=== PATIENT | female | born 1985 | race Caucasian/White ===

== ENCOUNTER 2018-10-09 10:31 | Day surgery (SDC) | payer OTHER, SELFPAY ==
--- NOTE | 2018-10-08 18:11 | HP.PCM_ITS ---
- Problem List (1) Nonviable Status: Acute History Date of Admission: 10/09/18 Final RHIANNA Source: LMP History of this : This is a 33 year-old, who presented for a NOB visit at ~10 weeks by LMP with VB. LMP 07/23/18. TVUS showed multiple cystic lesions within the uterine cavity with an HCG quant of ~116,000. Medical History: Medical History (Last Updated 10/08/18 @ 18:10 by Shirley Willis DO) Abnormal Pap smear of cervix R87.619 Hepatitis B B19.10 History of wisdom tooth extraction K08.409 Obesity E66.9 hemorrhage O72.1 Surgical History: Surgical History (Last Updated 10/08/18 @ 18:10 by Shirley Willis DO) History of laparoscopic cholecystectomy Z90.49 Allergies No Known Allergies Allergy (Verified 10/08/18 10:49) Home Medications: Home Medications Vits [Prenatabs FA ] 1 tablet PO DAILY 02/15/14 Acetaminophen [Tylenol] 1,000 mg PO Q8H PRN PRN tablet 04/11/17 Naproxen [Naprosyn] 250 - 500 mg PO Q8H PRN PRN tablet 04/11/17 Cholecalciferol (VIT D3) [Vitamin D] 1,000 unit PO DAILY 10/08/18 Ferrous Sulfate 325 mg PO DAILY 10/08/18 Lactobacillus Acidophilus/Fos [Acidophilus Probiotic Tablet] 1 each PO DAILY 10/08/18 Smoking Status: Never smoker History Past Pregnancies: Past Pregnancies Delivery Date Name GA/Weeks Outcome Route Weight Gender Labor Length Anesthesia Delivery Location Provider FOB Review of Systems Constitutional: Denies: Chills, Fever Eyes: Denies: Blurred vision HEENT: Denies: Head Aches Cardiovascular: Denies: Chest Pain Respiratory: Denies: Cough, Shortness of Breath Gastrointestinal: Denies: Abdominal Pain Genitourinary: Denies: Dysuria Psychiatric: Denies: Anxiety, Depression Physical Exam General: Alert, No apparent distress HEENT: Atraumatic Cardiovascular: Regular rate Lungs: Clear to auscultation Abdomen: Soft, Non Tender, Non-Distended Extremities:: No edema Neurological: Neuro grossly intact MASTER PLANNER: Normal external genitalia Assessment/Plan All Active Problems Nonviable (Acute) This is a 33 year-old who presented at 10 weeks by LMP with vaginal bleeding. Ultrasound shows an enlarged uterus with multiple cystic lesions within the uterine cavity. HCG quant is around 116,000. Discussed with patient concern for molar and reviewed other possible differentials. R/b/a of suction D&C reviewed and consent signed. Pt desires to proceed with suction D&C. Discussed increased risk for bleeding and uterine perforation. Discussed possible need for blood transfusion and pt is okay receiving blood products if needed.
[2018-10-09] VITALS (7 sets, daily range): BP systolic 103–119; BP diastolic 51–62; PULSE 70–76; RESP 16–18; TEMP 36.3–36.6; O2SAT 100; BMI 42.9
[2018-10-09 11:07] LABS: Hematocrit 39.7 % (37-47); Hemoglobin 13.6 g/dl (12.0-15.0); Mean Corp Hgb Conc 34.3 g/gl (32-36); Mean Corpuscular Hgb 30.6 pg (27.0-32.0); Mean Corpuscular Volume 89.2 fL (81-99); Platelet Count 228 K/mm3 (150-450); RBC Distribution Width CV 13.1 % (11.6-14.6); RBC Distribution Width SD 42.5 fl (35.1-43.9); Red Blood Count 4.45 M/mm3 (4.2-5.4); White Blood Count 5.7 K/mm3 (4.4-11.0)
[2018-10-09 11:09] LABS: Scan Indicated on CBC? Y/N NO
--- NOTE | 2018-10-09 12:00 | POC_PTH ---
PATIENT: BK ESPINAL [place] [facility] [id number] AGE/SX: 33/F ROOM: RE10/09/[address]: Dr. Shirley Willis DO : 1985 BED: DIS: 10/09/2018 SPEC #: [id number] RECD: 10/09/18 13:48 STATUS: KELIN EDDIE #: [id number] ANIBAL: 10/09/18 12:[address]: Shirley Willis DEPT: SURGICAL PATHOLOGY RECD BY: Vishal Lauren ENTERED: 10/09/18 14:57 SP TYPE: PROD CONC OTHR DR: No Primary Care Phys Tissues: Product of conception, NOS Procedures: Surgery Specimen Level IV HEADER OPERATION: Dilation and curettage, suction PRE-OP DIAGNOSIS: Nonviable TISSUE SUBMITTED: Products of conception MICROSCOPIC DIAGNOSIS Products of conception: Edematous chorionic villi with circumferential trophoblastic hyperplasia, focal cytologic atypia and central cistern formation, suggestive of hydatiform mole. Gestational pattern endometrium and decidual tissue with acute and chronic inflammation and implantation site. CE:quique 10/10/18 MICROSCOPIC DESCRIPTION Slides are reviewed. GROSS DESCRIPTION Received in fixative is one container labeled with the patient's name and designated products of conception. The specimen consists of multiple fragments of pink hemorrhagic soft tissue mixed with blood clot that in aggregate measure 13 x 9 x 3 cm. No tissue is identified. Laser Cutter tissue is submitted in two cassettes. / LAE:quique 10/09/18 TC:2 CPT: 69313
--- NOTE | 2018-10-09 12:28 | DCINST_ITS ---
Discharge Diet: No Restrictions Discharge Activity: Return to Normal Activity, May Drive, May Shower May resume sexual activity in: 4-6 weeks Weight Bearing Status: Full weight bearing Lifting Restrictions: None Call your doctor if you observe: Fever of 101 or Higher, Inability to urinate, Inability to have a bowel movement, Using more than one pad per hour, Shortness of breath, Dizziness, Chest pain, Increased palpitations (irregular heartbeat), Calf discomfort, Uncontrolled pain Cleanse incision/area with: Soap & Water Instructions: Dilation and Curettage Allergies/Adverse Reactions: Allergies No Known Allergies Allergy (Verified 10/09/18 10:48) Medications to take at Discharge Vits [Prenatabs FA ] 1 tablet PO DAILY 02/15/14 Acetaminophen [Tylenol] 1,000 mg PO Q8H PRN PRN tablet 04/11/17 Naproxen [Naprosyn] 250 - 500 mg PO Q8H PRN PRN tablet 04/11/17 Cholecalciferol (VIT D3) [Vitamin D] 1,000 unit PO DAILY 10/08/18 Ferrous Sulfate 325 mg PO DAILY 10/08/18 Lactobacillus Acidophilus/Fos [Acidophilus Probiotic Tablet] 1 each PO DAILY 10/08/18 Primary Care Physician: Care Physician,No Primary [Primary Care Provider] - Test Results: Test results from this visit will be discussed in further detail at your follow- up appointment, if applicable. Please Follow Up With: Shirley Willis DO When: 1 week Proposed Discharge Date: 10/09/18
[2018-10-09] MEDS: Lubricating Jelly 60 GM Tube 30 GM TOPICAL (12:40)
[2018-10-09] MEDS: miSOPROStol 200 MCG Tablet ×2 (12:58)
--- NOTE | 2018-10-09 13:04 | PCM.OPRPT ---
Problem List (1) Nonviable Status: Acute Report of Operation Date of Procedure: 10/09/18 Pre-Operative Diagnosis: Nonviable , MAB versus molar Post-Operative Diagnosis: As above Surgery/Procedure Performed:: Suction D&C under ultrasound guidance Description of Surgical Findings:: Enlarged uterus about 9 weeks in size with products of conception present. Cervix 2 cm dilated with scant POC's noted at the os on exam sandblast carver: Mickie Funez Type of Anesthesia:: MAC Special Medications: None Specimen's removed: Products of conception Drains: None Estimated Blood Loss (mL): 100 Description of Procedure: Patient was prepped and draped in usual sterile fashion in dorsal lithotomy position using yellow fin stirrups. MAC anesthesia was adequate. A weighted speculum was placed and cervix exposed. Cervix was already dilated to 2 cm with scant products of conception visible at the os. A single tooth tenaculum was placed on the anterior lip of the cervix. The cervix was serially dilated to accommodate a size 10 suction curettage. The suction curettage was used to remove products of conception under US guidance. A sharp curettage was performed gently to removed POC's in the right cornua that were visible on US. The suction curettage was passed again with no retained POC's noted, and the US showed a thin endometrial stripe with no retained POC's. Bleeding was hemostatic and uterus firm. All instruments were removed from the vagina. Cytotec 800 mcg was placed rectally. Instrument counts were correct. Patient tolerated the procedure well and was taken to the recovery room in stable condition. Grafts/Implants Used: None - Complications None - Admit VTE Documentation VTE Present on Admission: No VTE Mechan Device Prophylaxis: [facility] [place] VTE Pharm Prophylaxis ordered?: No
== END 2018-10-09 14:28 | disposition home or self-care (01) ==
LOC: SDC 10:39 → AC 10:40
PROVIDERS: Referring Provider Obstetrics & Gynecology; Visit Provider Obstetrics & Gynecology
PROC: (CPT 59820; principal; 2018-10-09 11:45)
DX: O02.1 Missed abortion (principal); Z3A.10 10 weeks gestation of pregnancy; E66.9 Obesity, unspecified; O99.211 Obesity complicating pregnancy, first trimester
CPT/HCPCS: 01965; 59820; 85027; 86850; 86900; 88305; J7120

== ENCOUNTER 2020-05-30 21:45 | Outpatient (CLI) | payer OTHER, SELFPAY ==
[2018-10-09 11:11] VITALS: BMI 42.9
[2020-05-30 21:58] VITALS: BP 127/62; PULSE 95; TEMP 36.8; O2SAT 99
[2020-05-30 22:28] VITALS: BMI 46.2
--- NOTE | 2020-06-04 13:16 | OB.TRI.NOTE ---
History of Present Illness Date of Service: 05/30/20 Was patient seen by the physician?: No Reason For Visit: R/O LABOR Final RHIANNA Source: LMP Allergies No Known Allergies Allergy (Verified 05/30/20 22:09) - Pertinent Past Medical History Medical History: Past Medical History (Last Updated 10/08/18 @ 18:[address] Shirley Willis, DO) Abnormal Pap smear of cervix Hepatitis B Obesity hemorrhage Surgical History: Past Surgical History (Last Updated 10/08/18 @ 18:[address] Shirley Willis, DO) History of laparoscopic cholecystectomy History of wisdom tooth extraction Physical Exam Vitals: Vital Signs Temp Pulse BP Pulse Ox 98.2 F 95 127/62 H 99 05/30/20 21:58 05/30/20 21:58 05/30/20 21:58 05/30/20 21:58 NST - FHR Rate Baby A Baseline: 145 Variability:: Moderate Accelerations:: 15 x 15 NST Reactive:: Yes Uterine Activity:: Irregular Impression/Plan Reactive NST for false labor
== END 2020-05-31 00:40 | disposition home or self-care (01) ==
LOC: WPOUT 21:50 → WP 21:51
PROVIDERS: Visit Provider Obstetrics & Gynecology
DX: O47.9 False labor, unspecified (principal); Z3A.00 Weeks of gestation of pregnancy not specified
CPT/HCPCS: 59025; 59050; 99218; G0378

== ENCOUNTER → 2020-06-05 13:00 | Outpatient (CLI) | payer OTHER, SELFPAY ==
[2020-05-30 22:28] VITALS: BMI 46.2
== END ==
PROVIDERS: Referring Provider Advanced Practice Midwife; Visit Provider Advanced Practice Midwife
DX: Z03.818 Encounter for observation for suspected exposure to other biological agents ruled out (principal)
CPT/HCPCS: 87635; C9803; U0003

== ENCOUNTER 2020-06-08 16:05 | Inpatient (IN) | payer OTHER, SELFPAY ==
[2020-06-08] VITALS (10 sets, daily range): BP systolic 117–134; BP diastolic 57–78; PULSE 75–108; TEMP 36.6–37.3; O2SAT 97–100; BMI 45.3
[2020-06-08] MEDS: Lactated Ringers 1,000 ML 50 ML IV (16:20)
[2020-06-08 16:35] LABS: Absolute Lymphocyte Count 1.38 X10^3/uL (0.83-4.51); Absolute Neutrophil Count 5.6 X10^3/uL (2.0-7.7); Basophil# 0.01 X10^3/uL; Basophil% 0.1 % (0-1); Eosinophil# 0.04 X10^3/uL; Eosinophils% 0.5 % (0-5); Hematocrit 35.3 % (37-47); Hemoglobin 12.2 g/dL (12.0-15.0); Lymphocyte # 1.38 X10^3/ul (4.0); Lymphocyte % 18.6 % (19-41); Mean Corp Hgb Conc 34.6 g/dL (32-36); Mean Corpuscular Hgb 30.9 pg (27.0-32.0); Mean Corpuscular Volume 89.4 fL (81-99); Mean Platelet Vol. 9.8 fl (6.2-12.0); Monocyte# 0.37 X10^3/uL; NRBC Flagged by Analyzer 0 % (0-5); Neutrophil # 5.59 X10^3/uL (2.7-7.7); Neutrophil % 75.4 % (47-70); Platelet Count 242 K/mm3 (150-450); RBC Distribution Width CV 13.5 % (11.6-14.6); Red Blood Count 3.95 M/mm3 (4.2-5.4); White Blood Count 7.4 K/mm3 (4.4-11.0)
[2020-06-08] MEDS: Oxytocin 30 units/NS 500 ml 30 UNITS/500 ML IV.SOLN IV (17:39)
[2020-06-08] MEDS: Lactated Ringers 500 ML 999 ML IV ×3 (17:59→23:33)
--- NOTE | 2020-06-08 19:11 | PCM.HP.OB ---
- Problem List (1) 40 weeks gestation of Status: Acute (2) AMA (advanced maternal age) multigravida 35+ Status: Acute (3) History of hemorrhage Status: Acute (4) History of delivery of macrosomal Status: Acute History Date of Admission: 06/08/20 Final RHIANNA: 06/08/20 Final RHIANNA Source: LMP Gestational age: 40 Weeks and 0 Days History of this : This is a 35 year-old, G [6], P [4], at 40 weeks gestational age that was sent over from office for spontaneous labor with rupture of membranes. Positive movement. complicated by AMA, Obesity, history of macrosomic infant and history of hemorrhage. Medical History: Medical History (Last Updated 10/08/18 @ 18:[address] Shirley Willis DO) Abnormal Pap smear of cervix R87.619 Hepatitis B B19.10 Obesity E66.9 hemorrhage O72.1 Surgical History: Surgical History (Last Updated 10/08/18 @ 18:[address] Shirley Willis DO) History of laparoscopic cholecystectomy Z90.49 History of wisdom tooth extraction K08.409 Allergies No Known Allergies Allergy (Verified 06/08/20 16:16) Home Medications: Home Medications Vits [Prenatabs FA ] 1 tablet PO DAILY 02/15/14 Acetaminophen [Tylenol] 1,000 mg PO Q8H PRN PRN tablet 04/11/17 Cholecalciferol (VIT D3) [Vitamin D] 1,000 unit PO DAILY 10/08/18 Ferrous Sulfate 325 mg PO DAILY 10/08/18 Lactobacillus Acidophilus/Fos [Acidophilus Probiotic Tablet] 1 each PO DAILY 10/08/18 Aspirin [Aspirin, Baby] 81 mg PO DAILY@0800 05/30/20 Smoking Status: Never smoker Number of Fetus(es): 1 NST - FHR Rate Baby A Baseline: 165 Variability:: Moderate Decelerations:: None NST Reactive:: Yes FHR Category:: Category I Uterine Activity:: TOCO reading occasional contractions History Past Pregnancies: Past Pregnancies Delivery Date Name GA/ Weeks Outcome Route Wt Sex Labor Length Anesthesia Delivery Location Provider FOB Labs: A+ Rubella - immune HB- neg HC- neg HIV- NR RPR- NR GBS- negative COVID 19- unknown Expected Infant Delivery Method: Spontaneous Vaginal Review of Systems Constitutional: Denies: Chills, Fever, Weight Change HEENT: Denies: Head Aches, Sinus Congestion, Sinus Drainage Cardiovascular: Denies: Chest Pain, Palpitations Respiratory: Denies: Cough, Shortness of breath at rest, Sputum production Gastrointestinal: Denies: Abdominal Pain, Nausea, Vomiting Genitourinary: Denies: Dysuria Neurological: Denies: Numbness, Tingling, Focal weakness Psychiatric: Denies: Anxiety, Depression, Homicidal Ideations, Suicidal Ideations Physical Exam Vitals: Vital Signs Temp Pulse BP Pulse Ox 98.4 F 75 121/57 H 100 06/08/20 18:35 06/08/20 18:36 06/08/20 18:36 06/08/20 18:35 General: Alert, Oriented x3, Cooperative Cardiovascular: Regular rate Lungs: Normal air movement Abdomen: Soft, Bowel Sounds Not Present Neurological: Cranial nerves II-XII grossly intact Assessment/Plan All Active Problems (Last Updated 10/08/18 @ 18:[address] Shirley Willis, DO) Nonviable (Acute) 40 weeks gestation of (Acute) AMA (advanced maternal age) multigravida 35+ (Acute) History of hemorrhage (Acute) History of delivery of macrosomal infant (Acute) This is a 35 year-old, G [6], P [4], at 40 weeks gestational age in spontaneous labor with spontaneous rupture of membranes. Admit to labor and delivery Routine labs IV fluids per policy NST reactive/ Category 1 tracing GBS- negative Start Pitocin 2mu/min and titrate per policy Anticipate Dr. Willis aware of admission and is collaborating physician
[2020-06-08] MEDS: Lactated Ringers 1,000 ML 200 ML IV (21:51)
--- NOTE | 2020-06-08 23:49 | PCM.PN.BLA ---
Progress Note Patient feeling pressure with contractions. Denies any pain at this time. Category 2 tracing with variables and late decelerations- overall reassuring A.R.O.M - forebag for large amount of meconium fluid 6.5-7cm/80/-1 Fluid bolus running now Patient in hands and knees position Continue to monitor closely Anticipate Dr. Willis updated STROKE Vital Signs/Narrative: Vital Signs Temp Pulse BP Pulse Ox 06/08/20 22:29 97.9 F 06/08/20 22:28 83 127/72 H 06/08/20 21:29 75 117/66 06/08/20 21:27 99.0 F 80 97 06/08/20 20:35 99.1 F 86 134/68 H 99
[2020-06-09] VITALS (19 sets, daily range): BP systolic 100–155; BP diastolic 39–74; PULSE 60–92; RESP 16–18; TEMP 36.1–38.2; O2SAT 81–99
--- NOTE | 2020-06-09 01:15 | PCM.PN.BLA ---
Progress Note Patient breathing well through contractions. Feeling mild pressure in bottom. Category 1 tracing with periods of tachycardia Continue present management Anticipate STROKE Vital Signs/Narrative: Vital Signs Temp Pulse BP Pulse Ox 06/09/20 00:53 83 155/55 H 97 06/09/20 00:13 99.0 F 06/09/20 00:03 92 126/74 H 06/08/20 22:29 97.9 F 06/08/20 22:28 83 127/72 H 06/08/20 21:29 75 117/66 06/08/20 21:27 99.0 F 80 97
[2020-06-09] MEDS: Oxytocin 30 units/NS 500 ml 30 UNITS/500 ML IV.SOLN 334 UNITS IV (01:35)
--- NOTE | 2020-06-09 01:49 | PCM.OPRPT ---
Problem List (1) 40 weeks gestation of Status: Acute (2) AMA (advanced maternal age) multigravida 35+ Status: Acute (3) History of hemorrhage Status: Acute (4) History of delivery of macrosomal Status: Acute Report of Operation Date of Procedure: 06/09/20 Vaginal Delivery Maternal Presentation: Active Labor at 40.1 weeks gestation that was sent from office for spontaneous labor with rupture of membranes. Amniotic Membrane Rupture Type: Spontaneous Amniotic Fluid Description: Thick meconium Final RHIANNA: 06/08/20 Gestational age: 40 Weeks and 1 Days doctor who attended delivery (if requested by OB): Ariana Neir Date of Procedure: 06/09/20 Pre-Operative Diagnosis: Term gestation, Spontaneous labor Post-Operative Diagnosis: same, live male infant Surgery/ Procedure Performed: Spontaneous Vaginal Delivery Type of Anesthesia: None Description of Procedure: Patient began feeling pressure and began bearing down with contractions. Minimal effort delivered head followed quickly by posterior then anterior shoulder and remainder of . Cord clamped and cut after delivery and infant handed off to javascript application developer and nursing staff. Pitocin IV started for active management of the third stage. Placenta delivered spontaneously and intact. Placenta meconium stained. Extremely long cord with 1 true knot noted. Hemostasis obtained. After inspection, vagina and perineum intact. EBL 200 cc. 8/9. currently skin to skin with patient and bonding well. Placenta sent to pathology due to history of molar . Dr. Willis updated. Presentation: Vertex, MARYURI Placental Delivery Description: Spontaneous Placenta Disposition: Sent to Pathology - History of molar Cord Vessel Description: 3 Vessels Cord Entanglement: None - Extremely long cord with 1 true knot Estimated Blood Loss: 200 (1 minute): 8 (5 minute): 9 Episiotomy Description: None Laceration: None Medications given after delivery: IV Pitocin Complications: None
--- NOTE | 2020-06-09 02:03 | PLAC_PTH ---
PATIENT: BK ESPINAL LOC: [facility] U#:[id number] AGE/SX: 35/F ROOM: [facility] RE06/08/[address]: Codi Monterroso CNM : 1985 BED: 1 DIS: 06/10/2020 SPEC #: [id number] RECD: 06/09/20 02:58 STATUS: KELIN EDDIE #: [id number] ANIBAL: 06/09/20 02:[address]: Codi Monterroso DEPT: SURGICAL PATHOLOGY RECD BY: Martha Hurley ENTERED: 06/09/20 10:00 SP TYPE: PLACENTA OTHR DR: No Primary Care Phys Tissues: Placenta, NOS Procedures: Surgery Specimen Level V HEADER OPERATION: Vaginal delivery PRE-OP DIAGNOSIS: History of molar TISSUE SUBMITTED: Placenta MICROSCOPIC DIAGNOSIS Krause placenta (530 gm): Umbilical cord - trivascular with no inflammation. Placental membranes - pigmented macrophages suggestive of meconium staining and focal mild acute deciduitis and acute chorionitis. Placental disc - foci of organizing intraparenchymal hemorrhage, nonspecific chronic villitis, increase intraparenchymal fibrin plaques and intravillous congestion. AM:quique 06/10/2020 MICROSCOPIC DESCRIPTION Slides are reviewed. GROSS DESCRIPTION SPECIMEN: PLACENTA / CLINICAL INFORMATION: A. Weight: 3.52 kg B. Gestational Age: 40 weeks C. Sex: Male PLACENTAL WEIGHT (POST FIXATION): 530 gm PLACENTAL DIMENSIONS: 18 x 17 x 3 cm PLACENTAL SHAPE: Usual ovoid PLACENTAL WEIGHT FOR GESTATIONAL AGE: Within 10-99th percentile MEMBRANES - Present A. Insertion: Marginal B. Site of rupture from edge: 8.5 cm from edge of placental disc C. Color of membrane: Anderson-hernandez D. Abnormalities: None UMBILICAL CORD - Present A. Color: Anderson-hernandez B. Insertion: Eccentric C. Length: 124 cm and displays spiraling D. Diameter: 1.2 cm E. Number of vessels: Three F. Abnormalities: None PLACENTAL DISC - Present A. Color of surface: Anderson-hernandez B. surface abnormalities: None C. Maternal cotyledons: Intact with minimal tears D. Attached retro placental clot: No clot E. Cut surface: Dark red and spongy F. Lesions: Two anderson-white lesions ranging in size from 1.5 to 2 cm. G. Separate clot: 5 x 3 x 0.8 cm SECTIONS SUBMITTED: 1. Umbilical cord ( end notched) 2. Umbilical cord, placental end 3. Membrane roll, lesion 4. Placental disc, and maternal surfaces, lesion 5. Placental disc, and maternal surfaces 6. Placental disc, and maternal surfaces AM:quique 06/09/20 TC:2 CPT: 86147
[2020-06-09 03:01] LABS: Pathology Specimen OB SEE PATHOLOGY REPORT
[2020-06-09] MEDS: Acetaminophen 500 MG Tablet 1000 MG PO ×3 (03:10→19:44)
[2020-06-09] MEDS: 0.9% Saline Lock 10 ML Syringe IV (04:07)
[2020-06-10 03:27] VITALS: BP 107/52; PULSE 68; RESP 16; TEMP 36.2
[2020-06-10 08:04] VITALS: BP 104/50; PULSE 68; RESP 16; TEMP 36.9; O2SAT 97
--- NOTE | 2020-06-10 10:50 | PCM.PN.OB ---
Patient Problems: Active and Suspected Problems (Last Updated 10/08/18 @ 18:[address] Shirley Willis, DO) 40 weeks gestation of (Acute) AMA (advanced maternal age) multigravida 35+ (Acute) History of hemorrhage (Acute) History of delivery of macrosomal infant (Acute) Subjective: Doing well per patient and nursing staff. Ambulating and taking p.o. without difficulty. Voiding and passing flatus. Breast-feeding without difficulty.Pain controlled. Denies any headache, visual changes, chest pain, shortness of breath, leg pain, or increased bleeding or clots. Lochia normal. Planning discharge home today. - Physical Exam Vitals/I&O's: Vital Signs Temp Pulse Resp BP Pulse Ox 98.4 F 68 16 104/50 L 97 06/10/20 08:04 06/10/20 08:04 06/10/20 08:04 06/10/20 08:04 06/10/20 08:04 Oxygen Flow Rate (L/min) 97 Oxygen Delivery Method Room Air Weight: 298 lb Body Mass Index (BMI) 45.3 Intake and Output for Last 24 Hours 06/08/20 06/09/20 06/10/20 23:59 23:59 23:59 Intake Total 2167.83 / 2167.83 866.67 / 866.67 Output Total 600 / 600 700 / 700 Balance 1567.83 / 1567.83 166.67 / 166.67 General: Alert, Oriented x3, Cooperative HEENT: Atraumatic, Normocephalic Neck: Trachea Midline Lungs: Clear to auscultation, Normal air movement, No rhonchi, No wheeze Cardiovascular: Regular rate, Regular Rhythm Abdomen: Bowel Sounds Present, Soft - fundus firm 2 below U Extremities: No edema Psych/Mental Status: Normal Affect, Appropriate Microbiology Past 72 Hours 06/08/20 16:20 Mucosa - Nose SARS-CoV-2 Antigen (Rapid) - Final Current Medications Acetaminophen (Acetaminophen 500 Mg Tablet) 1,000 mg PO Q8H PRN PRN PRN Reason: Pain Score 1-3 Last Admin: 06/09/20 19:44 Dose: 1,000 mg Documented by: Bisacodyl (Bisacodyl 10 Mg Suppository) 10 mg RC UD PRN PRN Reason: If no BM Dibucaine (Dibucaine 30 Gm Tube) 1 applic TOPICAL TID PRN PRN; Protocol PRN Reason: Discomfort Hydrocortisone (Hydrocortisone 2.5% Crm) 1 applic TOPICAL TID PRN PRN; Protocol PRN Reason: Discomfort Methylergonovine Maleate (Methylergonovine 0.2 Mg/Ml Ampul) 0.2 mg IM X1 PRN PRN Reason: Excess bleeding/uterine atony Ondansetron HCl (Ondansetron 4 Mg/2 Ml Vial) 4 mg IV Q4H PRN PRN PRN Reason: Nausea Senna/Docusate Sodium (Senna/Docusate Sodium 1 Tablet) 1 - 2 tablet PO DAILY PRN PRN PRN Reason: Constipation Simethicone (Simethicone 80 Mg Tablet) 80 mg PO PCHS PRN PRN Reason: Indigestion/Stomach pain Sodium Chloride (0.9% Saline Lock 10 Ml Syringe) 5 - 15 ml IV UD PRN PRN Reason: SALINE FLUSH Last Admin: 06/09/20 04:07 Dose: 10 ml Documented by: Medical Necessity - Tobacco Use Smoking Status: Never smoker Assessment/Plan All Active Problems (Last Updated 10/08/18 @ 18:[address] Shirley Willis, DO) Nonviable (Acute) 40 weeks gestation of (Acute) AMA (advanced maternal age) multigravida 35+ (Acute) History of hemorrhage (Acute) History of delivery of macrosomal infant (Acute) A:PPD #1 History of Molar P: 1. routine discharge instructions 2. Vitals stable 3. Denies any pain medication upon discharge. 4. Discharge home today 5. All up in 2 weeks and 6 weeks
--- NOTE | 2020-06-10 11:03 | DCINST_ITS ---
Discharge Diet: No Restrictions Discharge Activity: Return to Normal Activity, May not drive while taking narcotic pain medications., May Shower, May Take a Tub Bath May resume sexual activity in: 4-6 weeks Weight Bearing Status: Full weight bearing Additional Activity Instructions:: Nothing in the vagina for 4-6 weeks. You may return to work/school in 6 weeks. Call your doctor if your incision/area has: Continuous Slow Oozing, Sudden Increased Bleeding, Increased Pain/ Swelling, Increased Redness, Foul Smelling Discharge Call your doctor if you observe: Fever of 101 or Higher, Inability to urinate, Inability to have a bowel movement, Using more than one pad per hour, Shortness of breath, Chest pain, Increased palpitations (irregular heartbeat), Calf discomfort, Uncontrolled pain Additional Instructions: If you experience any of the following, contact your healthcare provider. * Bleeding that soaks a pad every hour for 2 hours * Fever 100.4 or higher * Unrelieved incision or abdominal pain * Swelling, redness, discharge or bleeding from your incision or episiotomy site * Your incision begins to separate * Problems urinating (including inability to urinate or burning while urinating). * Visual changes * Severe headache * Flu-like symptoms * Pain or redness in one of both of your breasts * Pain, warmth, tenderness or swelling in your legs, especially the calf area * Frequent nausea and vomiting * Symptoms of depression or anxiety If you experience any of the following, call 911 or go to the nearest Emergency Room. * Chest pain * Problems breathing * Seizure activity * Partial or complete paralysis of a body part, slurred speech, weakness or drooping of the face, or a sudden inability to walk or hold your balance Allergies/Adverse Reactions: Allergies No Known Allergies Allergy (Verified 06/08/20 16:16) Medications to take at Discharge Vits [Prenatabs FA ] 1 tablet PO DAILY 02/15/14 Acetaminophen [Tylenol] 1,000 mg PO Q8H PRN PRN tablet 04/11/17 Cholecalciferol (VIT D3) [Vitamin D3] 1,000 unit PO DAILY 10/08/18 Lactobacillus Acidophilus/Fos [Acidophilus Probiotic Tablet] 1 each PO DAILY 10/08/18 Please Follow Up With: Mickie Funez CNM When: Call to make an appointment with your doctor in 6 weeks. If you had elevated Blood Pressure or 4th degree laceration you will need to be seen in 2 weeks. Primary Care Physician: Care Physician,No Primary [Primary Care Provider] - Test Results: Test results from this visit will be discussed in further detail at your follow- up appointment, if applicable.
[2020-06-10 12:54] VITALS: BP 120/60; PULSE 74; RESP 16; TEMP 36.4; O2SAT 96
[2020-06-10 14:00] VITALS: BP 115/47; PULSE 84; RESP 16; TEMP 36.3; O2SAT 96
[2020-06-10 16:38] VITALS: BP 115/47; PULSE 86; RESP 16; TEMP 36.4; O2SAT 98
== END 2020-06-10 16:55 | disposition home or self-care (01) | DRG 807 ==
PROVIDERS: Admitting Provider Advanced Practice Midwife; Referring Provider Advanced Practice Midwife; Visit Provider Advanced Practice Midwife
DX: O77.0 Labor and delivery complicated by meconium in amniotic fluid (principal); Z37.0 Single live birth; O99.214 Obesity complicating childbirth; Z3A.40 40 weeks gestation of pregnancy; O76 Abnormality in fetal heart rate and rhythm complicating labor and delivery; O69.2XX0 Labor and delivery complicated by other cord entanglement, with compression, not applicable or unspecified
CPT/HCPCS: 59025; 59050; 76815; 85025; 86850; 86900; 86901; 87426; 88307; 99218; J7120; A4216; G0378

== ENCOUNTER 2021-05-24 15:10 | Outpatient (CLI) | payer OTHER, SELFPAY ==
[2021-05-24 16:25] LABS: CRP < 2.90 mg/L (0.0-3.0); Rheumatoid Factor < 10.0 IU/mL (<15)
[2021-05-26 15:00] LABS: ANTINUCLEAR ANTIBODIES DIRECT Negative (Negative)
[2021-05-28 14:19] LABS: CCP IgG Antibodies 5 units (0-19)
== END 2021-05-24 23:59 | disposition short-term general hospital (02) ==
PROVIDERS: Referring Provider Podiatrist; Visit Provider Podiatrist
DX: M19.079 Primary osteoarthritis, unspecified ankle and foot (principal)
CPT/HCPCS: 36415; 86038; 86140; 86200; 86225; 86235; 86431

== ENCOUNTER 2022-03-14 07:00 | Inpatient (IN) | payer OTHER, SELFPAY ==
[2022-03-14] VITALS (20 sets, daily range): BP systolic 99–122; BP diastolic 45–67; PULSE 70–89; RESP 16–17; TEMP 36.4–37.1; O2SAT 92–100; BMI 45.6
--- NOTE | 2022-03-14 08:13 | HP.PCM.OB_ITS ---
HPI - General General Date of Admission: 03/14/22 HPI Narrative BK ESPINAL, is a 37 F who presents at 39 weeks 5 days by LMP for induction of labor due to AMA, postdates, morbid obesity. Maternal Data Information Final RHIANNA: 03/16/22 [facility] Medical History (Updated 03/14/22 @ 13:[address] Shirley Willis, DO) Abnormal Pap smear of cervix Advanced maternal age (AMA) in Hepatitis B Obesity depression hemorrhage Home Medications vits,calcium no.78-iron fumarate-folic acid 29 mg-1 mg tablet (Prenatabs FA) 1 tab PO DAILY 02/15/14 [History Last Taken 06/07/20] acetaminophen 500 mg tablet 1,000 mg PO Q8H PRN PRN MILD PAIN (1- 3)/Temp>99.6F 04/11/17 [Rx Last Taken 06/14/19] Lactobacillus acidophilus 500 million cell-fructooligosac 50 mg tablet 1 ea PO DAILY 10/08/18 [History Last Taken 06/06/20] cholecalciferol (vitamin D3) 25 mcg (1,000 unit) tablet (Vitamin D3) 1,000 unit PO DAILY 10/08/18 [History Last Taken 06/01/20] Aspir-81 81 mg PO.IVFORM DAILY 03/14/22 [History Last Taken 03/13/22] Allergy/AdvReac Type Severity Reaction Status Date / Time No Known Allergies Allergy Verified 06/08/20 16:16 Surgical History (Updated 03/14/22 @ 09:36 by Veda Brice) History of cholecystectomy History of laparoscopic cholecystectomy History of wisdom tooth extraction Social History Smoking Status: Never smoker History Elective abortions Hx Para 5 Spontaneous abortions Hx # Term Pregnancies Ectopic pregnancies Hx # Pregnancies Multiple births # of living children NST FHR Rate Baby A Baseline: 145 Variability:: Moderate Accelerations:: 15 x 15 Decelerations:: None FHR Category:: Category I Uterine Activity:: None ROS Constitutional Constitutional: Reports systems reviewed and no addt'l complaints, except as documented; Denies headache(s) Eyes Eyes: Denies acute decrease in peripheral vision, blurry vision or change in vision ENT HEENT: Reports systems reviewed and no addt'l complaints, except as documented Cardiovascular Cardiovascular: Denies chest pain or dizziness Respiratory/Chest Respiratory/Chest: Denies cough, dyspnea, dyspnea on exertion, shortness of breath at rest or shortness of breath with exertion Gastrointestinal Gastrointestinal: Denies abdominal pain, diarrhea, nausea or vomiting Genitourinary Genitourinary: Denies abdominal discomfort Musculoskeletal Musculoskeletal: Denies limited range of motion Integumentary Integumentary: Reports systems reviewed and no addt'l complaints, except as documented Neurologic Neurologic: Reports systems reviewed and no addt'l complaints, except as doc umented Psychiatric Psychiatric: Reports systems reviewed and no addt'l complaints, except as documented Endocrine Endocrinology: Reports systems reviewed and no addt'l complaints, except as documented Hematologic/Lymphatic Hematologic/Lymphatic: Reports systems reviewed and no addt'l complaints, except as documented Allergic/Immunologic Allergic/Immunologic: Reports systems reviewed and no addt'l complaints, except as documented Vital Signs Vital Signs Vital Signs: 03/14/22 07:59 03/14/22 07:59 03/14/22 08:00 Temperature 98.1 F Temperature Source Pulse Rate 71 Blood Pressure 121/56 H BP Systolic 121 BP Diastolic 56 Pulse Ox 03/14/22 08:01 03/14/22 08:01 03/14/22 08:01 Temperature Temperature Source Temporal Pulse Rate 74 Blood Pressure BP Systolic BP Diastolic Pulse Ox 98 03/14/22 08:01 Temperature 98.0 F Temperature Source Pulse Rate Blood Pressure BP Systolic BP Diastolic Pulse Ox Physical Exam Const alert and oriented x3 General Appearance: cooperative Orientation / Consciousness: awake, oriented to person, oriented to place and oriented to time Exam Limitations: no limitations HEENT normocephalic Head and Scalp: normal to inspection, normocephalic and atraumatic Face and Sinus: normal facial exam Eyes General Eye: normal appearance of both eyes Neck full ROM Chest Chest: symmetrical chest wall rise Resp normal respiratory effort and normal air movement Auscultation: clear to auscultation bilaterally Cardio regular rate, regular rhythm, S1 normal heart sound, S2 normal heart sound, no murmurs, no rub, no gallops and no clicks GI normal to inspection, nondistended, normoactive bowel sounds and non-tender appearance of the vagina normal Narrative: Bedside US shows breech presentation. Bladder / Kidney Exam: no CVA tenderness Manual OB Exam: estimated gestational size appropriate, presentation breech, dilated 2, effaced 50 and station high Back/Spine normal ROM Extremity normal to inspection and full ROM Skin no rashes or lesions noted Neuro oriented x3, CN's II-XII intact bilaterally and moves all extremities Sensorium / Orientation: awake, alert and oriented to person Motor Exam: clonus absent Deep Tendon Reflexes: Rt Patellar (L4): 2+ and Lt Patellar (L4): 2+ Labs Labs Labs: Blood Type A POSITIVE Antibody Screen NEGATIVE Hct 37.2 % (37-47) Hgb 12.3 g/dL (12.0-15.0) Obstetrics US Rhogam given: No GBS negative HIV negative HepC negative HBsAG negative RPR negative Rubella Immune A positive Assessment & Plan (1) Transverse lie of fetus: (2) Obesity affecting : (3) Breech presentation: (4) 39 weeks gestation of : (5) AMA (advanced maternal age) multigravida 35+: (6) History of hemorrhage: (7) History of delivery of macrosomal : PLAN: Plan 1) Admit to labor and delivery 2) Routine labs 3) COVID screening 4) GBS negative 5) Limited bedside US shows breech presentation. Reviewed option with patient and for ECV vs. primary section. Reviewed risks, benefits and a lternatives. Patient would like ECV. constulted and agrees with plan. Will be presenting to hospital for ECV and if unsuccessful will have primary section.
[2022-03-14 09:27] LABS: Absolute Lymphocyte Count 1.48 X10^3/uL (0.83-4.51); Absolute Neutrophil Count 5.1 X10^3/uL (2.0-7.7); Basophil# 0.01 X10^3/uL; Basophil% 0.1 % (0-1); Eosinophil# 0.02 X10^3/uL; Eosinophils% 0.3 % (0-5); Hematocrit 37.2 % (37-47); Hemoglobin 12.3 g/dL (12.0-15.0); Lymphocyte # 1.48 X10^3/ul (0.83-4.51); Lymphocyte % 21.1 % (19-41); Mean Corp Hgb Conc 33.1 g/dL (32-36); Mean Corpuscular Hgb 30.1 pg (27.0-32.0); Mean Platelet Vol. 10.2 fl (6.2-12.0); Monocyte# 0.39 X10^3/uL; Monocyte% 5.5 % (0-10); NRBC Flagged by Analyzer 0 % (0-5); Neutrophil % 72.6 % (47-70); Platelet Count 193 K/mm3 (150-450); RBC Distribution Width CV 13.7 % (11.6-14.6); RBC Distribution Width SD 45.5 fl (35.1-43.9); Red Blood Count 4.09 M/mm3 (4.2-5.4)
[2022-03-14] MEDS: Lactated Ringers 1,000 ML 999 ML IV (12:05)
[2022-03-14] MEDS: Sodium Citrate/Citric Acid 30 ML UDC PO (12:05)
[2022-03-14] MEDS: Acetaminophen 500 MG Tablet PO (12:05)
--- NOTE | 2022-03-14 12:10 | PCM.OPRPT ---
Problems Associated Problem List Diagnoses (1) 39 weeks gestation of : (2) AMA (advanced maternal age) multigravida 35+: (3) Obesity affecting : (4) Transverse lie of fetus: Report of Operation Date of Procedure: 03/14/22 Pre-Operative Diagnosis: 39 week gestation, single IUP, transverse lie of fetus, AMA, obesity Post-Operative Diagnosis: As above Surgery/Procedure Performed:: External cephalic version Description of Surgical Findings:: Bedside ultrasound confirmed fetus in transverse lie with head along maternal right Surgeon: Shirley Willis fisher pound net or trap: Mickie Funez Type of Anesthesia: None Special Medications: None Specimen's removed: None Drains: None Estimated Blood Loss (mL): None Fluids Replaced: N/A Description of Procedure: A bedside US was performed confirming a single IUP and transverse lie. US was limited by maternal body habitus. NST reactive before ECV. Discussed r/b/a to an external cephalic version and patient provided consent and requested to proceed. Using manual pressure the fetus was manipulated with gentle pressure from the palms against the buttocks and posterior occiput the stimulate a forward roll. In total 2 attempts were made and FHR was reassuring in between attempts. Next a backwards roll was briefly attempted, and FHR was checked and bradycardia was noted. No further attempts were made. Fetus remained in transverse lie. The FHR then returned to baseline and was reassuring after about 1-2 minutes. The patient was taken to the OR for a section given gestational age. Grafts/Implants Used: None Complications None Admit VTE Documentation VTE Present on Admission: No
--- NOTE | 2022-03-14 13:53 | PCM.OPRPT ---
Problems Associated Problem List Diagnoses (1) 39 weeks gestation of : (2) AMA (advanced maternal age) multigravida 35+: (3) Obesity affecting : (4) Transverse lie of fetus: Report of Operation Date of Procedure: 03/14/22 Pre-Operative Diagnosis: 39 week gestation, single IUP, obesity, AMA, transverse lie of fetus Post-Operative Diagnosis: As above Surgery/Procedure Performed:: PLTCS via pfannenstiel incision Description of Surgical Findings:: VFI in transverse lie back up with head along maternal right. Large amount of clear fluid. Normal appearing uterus and bilateral adnexa Surgeon: Shirley Willis coordinate measuring equipment operator: Niki Saunders coordinate measuring equipment operator: Sujatha RODRIGUEZ Type of Anesthesia: Spinal Special Medications: None Specimen's removed: Placenta Drains: Matthew Estimated Blood Loss (mL): 1000 Fluids Replaced: See anesthesia record Description of Procedure: The patient was taken to the OR where spinal anesthesia was adequate. She was prepped and draped in the dorsal position with a leftward tilt. A pfannenstiel skin incision was made on the skin with a scalpel and this was carried down to the underlying layer of fascia. The fascia was incised in the midline and extended laterally using blunt dissection. The rectus muscles were in the midline. The peritoneum was entered bluntly with good visualization of the bladder. A bladder blade was inserted. The uterus was palpated to determine position. A low transverse incision was made on the uterus with a scalpel. While membranes were intact, both feet was palpated and brought to the hysterotomy. The membranes were then ruptured for a large amount of clear fluid. The legs and buttock of the were delivered, followed by the body and arms, followed by the head without any force or delay. The head was flexed during delivery. A vigorous viable female was delivered atraumatically. The cord was clamped and cut after a 60 sec delay, and the was handed off to the awaiting nursery staff. The placenta was removed with manual extraction. The uterus was exteriorized. The hysterotomy was closed in a 2 layer fashion with 1-0 Vicryl. The first layer was a running locked layer. The second was an imbricating layer. The uterus was placed back into the abdomen. The bovie cautery was used along the lower uterine segment to hemostasis. Arrista was placed over the hysterotomy and lower uterine segment. The peritoneum was unable to be closed as it was thin and continued to tear. The rectus muscles were noted to be hemostatic. The fascia was closed with Stratafix in a running fashion. The subcutaneous space was irrigated and made hemostatic. The subcutaneous space was closed with 3-0 Vicryl. The skin as closed with Monocryl. A silver dressing was placed. Instrument, sponge and needle counts were correct and the patient was taken to the recovery room in stable condition. Bed Manager Dr. Lindo present for draping the patient and delivery of the . Bed Manager Sujatha RODRIGUEZ presents for closure. Grafts/Implants Used: None Complications None Admit VTE Documentation VTE Present on Admission: No VTE Mechan Device Prophylaxis: SCD's
[2022-03-14] MEDS: Oxytocin 15 Units/NS 250ml 15 UNITS/250 ML IV.SOLN 83 UNITS IV (14:30)
[2022-03-14] MEDS: Methylergonovine 0.2 MG/ML Ampul IM (14:35)
[2022-03-14] MEDS: miSOPROStol 200 MCG Tablet 1000 MCG RC (14:56)
[2022-03-14] MEDS: Ketorolac 30 MG/ML Syringe IV ×2 (15:00→20:52)
[2022-03-14] MEDS: Lactated Ringers 1,000 ML 100 ML IV (17:21)
[2022-03-14 17:46] LABS: Absolute Lymphocyte Count 1.16 X10^3/uL (0.83-4.51); Absolute Neutrophil Count 9.8 X10^3/uL (2.0-7.7); Basophil# 0.01 X10^3/uL; Basophil% 0.1 % (0-1); Eosinophil# 0.01 X10^3/uL; Eosinophils% 0.1 % (0-5); Lymphocyte # 1.16 X10^3/ul (0.83-4.51); Mean Corp Hgb Conc 33.3 g/dL (32-36); Mean Corpuscular Hgb 30.1 pg (27.0-32.0); Mean Corpuscular Volume 90.2 fL (81-99); Monocyte# 0.52 X10^3/uL; Monocyte% 4.5 % (0-10); NRBC Flagged by Analyzer 0 % (0-5); Neutrophil # 9.83 X10^3/uL (2.7-7.7); Platelet Count 195 K/mm3 (150-450); RBC Distribution Width CV 13.7 % (11.6-14.6); RBC Distribution Width SD 44.5 fl (35.1-43.9); Red Blood Count 3.66 M/mm3 (4.2-5.4); White Blood Count 11.6 K/mm3 (4.4-11.0)
[2022-03-14] MEDS: Acetaminophen 500 MG Tablet 1000 MG PO (18:10)
--- NOTE | 2022-03-14 18:10 | PCM.PN.BLA ---
Progress Note Delayed entry. Called for increased bleeding. The patient feels well and denies symptoms of anemia. Pain is well controlled. RN at bedside and reports several large blood clots were expressed from the uterus with fundal massage and 1 dose of methergine was given. Physical Exam Const alert and no apparent distress General Appearance: comfortable HEENT normocephalic Resp normal respiratory effort GI non-tender and non-distended GI Narrative: Non tender, dressing c/d/i, non acute, FF@U Narrative: A slow dark red trickle of blood is noted with fundal massage of uterus Assessment & Plan Assessment/Plan (1) hemorrhage: PLAN: Pt w/ no symptoms of anemia. VSS. Check CBC this afternoon and again in AM. Discussed possible need for blood transfusion or IV iron. Methergine x 1 given and rectal Cytotec placed. Bleeding minimal at this time and fundus firm. Continue to closely monitor.
--- NOTE | 2022-03-14 20:42 | NURSING ---
Pt stood at side of bed. tolerated well.
--- NOTE | 2022-03-14 23:20 | NURSING ---
This RN was assessing pt when Dr Monterroso entered room to assess pt as well at 2029. This RN and Dr monterroso discussed pt assessment. Fundus 1-2 below, firm, and midline. At 1612 vaginal bleeding was 286 ml. At 1716 vaginal bleeding was 22 ml. At 2048 vaginal bleeding was 44 ml. Vital signs at 2029 was 122/52, pulse 78. Pt stood up for first time at 2014 and tolerated well. Pt denies dizziness, H/A, or drowsiness. Will continue to monitor pt and draw a CBC at 0600 on 03/15.
--- NOTE | 2022-03-14 23:45 | NURSING ---
At 220, this RN received a call from Dr. Willis. This RN updated Dr. Willis on patient. Fundus firm, midline, 1-2 below umbilicus. There is a slow trickle of bleeding. At 1612 there was 286 ml of vaginal bleeding, at 1716 22ml of vaginal bleeding, and at 204 pt had 44ml of vaginal bleeding. Vitals at 2030 were BP of 122/52 and a HR of 78. Will continue to monitor pt and draw a cbc at 0600.
[2022-03-15] MEDS: Acetaminophen 500 MG Tablet 1000 MG PO ×4 (00:12→18:55)
[2022-03-15 00:16] VITALS: BP 124/47; PULSE 75; RESP 18; TEMP 36.4; O2SAT 97
[2022-03-15] MEDS: Ketorolac 30 MG/ML Syringe IV (02:27)
[2022-03-15] MEDS: 0.9% Saline Lock 10 ML Syringe IV ×2 (02:28→08:36)
[2022-03-15 04:58] VITALS: BP 117/51; PULSE 72; RESP 18; TEMP 36.3; O2SAT 96
[2022-03-15 05:44] LABS: Hematocrit 31.1 % (37-47); Hemoglobin 10.4 g/dL (12.0-15.0); Mean Corp Hgb Conc 33.4 g/dL (32-36); Mean Corpuscular Hgb 30.1 pg (27.0-32.0); Mean Corpuscular Volume 89.9 fL (81-99); Mean Platelet Vol. 10.1 fl (6.2-12.0); Platelet Count 175 K/mm3 (150-450); RBC Distribution Width CV 14.1 % (11.6-14.6); RBC Distribution Width SD 45.2 fl (35.1-43.9); Red Blood Count 3.46 M/mm3 (4.2-5.4); White Blood Count 9.2 K/mm3 (4.4-11.0)
--- NOTE | 2022-03-15 07:50 | PN.OBGYN_ITS ---
Subjective Subjective Patient seen at bedside. Feeling good. Pain is controlled. Ambulating and voiding without difficulty. Denies headache, vision changes, dizziness, SOB or CP. Lochia decreasing. with minimal support. Anticipates discharge home tomorrow. Objective Data Objective Data Vital Signs: Vital Signs Temp Pulse Resp BP Pulse Ox O2 Del Method 97.6 F L 75 16 111/41 L 98 Room Air 03/15/22 09:00 03/15/22 09:00 03/15/22 09:00 03/15/22 09:00 03/15/22 09:00 03/15/22 09:00 Oxygen Delivery Method Room Air Weight: 300 lb 6 oz Body Mass Index (BMI) 45.6 Intake & Output: Intake and Output for Last 24 Hours 03/13/22 03/14/22 03/15/22 23:59 23:59 23:59 Intake Total 2648.1 / 2648.1 690 / 690 Output Total 2407 / 2407 2000 Balance 241.1 / 241.1 -1311 / -1311 Lab / Micro Data Result Diagrams: 03/15/22 05:35 Labs: Laboratory Results - last 24 hr 03/14/22 17:25: WBC 11.6 H, RBC 3.66 L, Hgb 11.0 L, Hct 33.0 L, MCV 90.2, MCH 30.1, MCHC 33.3, RDW Std Deviation 44.5 H, RDW Coeff of Fide 13.7, Plt Count 195, MPV 10.0, Immature Gran % (Auto) 0.300, Neut % (Auto) 85.0 H, Lymph % (Auto) 10 .0 L, [place] % (Auto) 4.5, Eos % (Auto) 0.1, Baso % (Auto) 0.1, Absolute Neuts (auto) 9.8 H, Absolute Lymphs (auto) 1.16, Nucleated RBC % 0 03/15/22 05:35: WBC 9.2, RBC 3.46 L, Hgb 10.4 L, Hct 31.1 L, MCV 89.9, MCH 30.1, MCHC 33.4, RDW Std Deviation 45.2 H, RDW Coeff of Fide 14.1, Plt Count 175, MPV 10.1 ROS Eyes Eyes: Denies blurry vision, change in vision or spots in vision ENT HEENT: Denies dizziness or headache(s) Cardiovascular Cardiovascular: Denies abdominal pain, chest pain or dyspnea Respiratory/Chest Respiratory/Chest: Denies cough, dyspnea, shortness of breath at rest or shortness of breath with exertion Gastrointestinal Gastrointestinal: Denies abdominal pain, diarrhea or vomiting Genitourinary Genitourinary: Denies change in urinary stream, difficulty urinating or dysuria Musculoskeletal Musculoskeletal: Reports none Integumentary Integumentary: Denies rash Neurologic Neurologic: Denies dizziness, headache(s), memory loss or weakness Physical Exam Narrative Dressing is dry and intact Const alert and no apparent distress General Appearance: cooperative and comfortable Exam Limitations: no limitations HEENT normocephalic Eyes General Eye: normal appearance of both eyes Neck full ROM General: normal visual inspection Chest Chest: symmetrical chest wall rise Resp normal respiratory effort and normal air movement Effort and Inspection: symmetric chest movement Auscultation: clear to auscultation bilaterally Cardio regular rate and regular rhythm GI normal to inspection, nondistended, normoactive bowel sounds Back/Spine normal ROM Extremity full ROM and no calf tenderness General Extremity: normal exam except as noted Skin no rashes or lesions noted Neuro CN's II-XII intact bilaterally Psych mental status grossly normal Assessment & Plan (1) hemorrhage: (2) Obesity affecting : (3) Status post primary low transverse section: PLAN: Plan POD 1 Primary C/S with PPH HGB 10.4 from 12.3- patient asymptomatic Pain control support Continue to monitor Anticipate discharge tomorrow or
[2022-03-15] MEDS: Ibuprofen 600 MG Tablet PO ×2 (08:44→18:55)
[2022-03-15 09:00] VITALS: BP 111/41; PULSE 75; RESP 16; TEMP 36.4; O2SAT 98
[2022-03-15] MEDS: Senna/Docusate Sodium 1 Tablet PO (09:47)
[2022-03-15 13:30] VITALS: BP 109/40; PULSE 78; RESP 18; TEMP 36.4
[2022-03-15 20:06] VITALS: BP 131/49; PULSE 89; RESP 18; TEMP 36.3; O2SAT 97
[2022-03-16] MEDS: Ibuprofen 600 MG Tablet PO ×3 (00:32→11:14)
[2022-03-16] MEDS: Acetaminophen 500 MG Tablet 1000 MG PO ×2 (00:47→06:27)
[2022-03-16 02:42] VITALS: BP 113/56; PULSE 82; RESP 16; TEMP 36.2; O2SAT 98
--- NOTE | 2022-03-16 08:23 | PCM.PROGNOTE ---
Subjective Subjective patient seen at bedside, doing well. Patient reports good pain control. lochia mild. breast feeding. voiding w/o difficulty. had small BM and passing flatus. tolerating regular diet. denies CP, sob, dizziness. Objective Data Objective Data Vital Signs: Vital Signs Temp Pulse Resp BP Pulse Ox O2 Del Method 97.2 F L 82 16 113/56 L 98 Room Air 03/16/22 02:42 03/16/22 02:42 03/16/22 02:42 03/16/22 02:42 03/16/22 02:42 03/16/22 02:42 Oxygen Delivery Method Room Air Weight: 136.248 kg Body Mass Index (BMI) 45.6 Intake & Output: Intake and Output for Last 24 Hours 03/14/22 03/15/22 03/16/22 23:59 23:59 23:59 Intake Total 2648.1 / 2648.1 690 / 690 Output Total 2407 / 2407 2000 Balance 241.1 / 241.1 -1311 / -1311 Lab / Micro Data Result Diagrams: 03/15/22 05:35 Physical Exam Const alert and oriented x3 General Appearance: cooperative HEENT normocephalic Neck General: normal visual inspection GI soft to palpation and non-distended GI Narrative: Fundus firm Extremity normal to inspection and no calf tenderness Skin no rashes or lesions noted Neuro oriented x3 and CN's II-XII intact bilaterally Psych mental status grossly normal Assessment & Plan Assessment/Plan (1) Status post primary low transverse section: (2) hemorrhage: (3) Acute blood loss anemia: PLAN: Plan POD# 2 , Doing well Routine care pain mgmt monitor VS ambulation dc home
--- NOTE | 2022-03-16 08:25 | PCM.DC.BLA ---
Discharge Summary Date of Admission: 03/14/22 Date of Discharge: 03/16/22 Summary: Patient was admitted to [facility] on 03/14/2022 for induction of laborat 39.5 weeks gestation and was found to be breech presentation was then attempted for external cephalic version noted which was unsuccessful fetus was in the backdown position and was scheduled then for a primary section. Patient underwent a primary low transverse section without complication. Had a hemorrhage of approximately 1 L had a uncomplicated postoperative course after that-only required IM Methergine no blood products were transfused. Patient was discharged home on postoperative day #2 in stable condition. Meaningful Use Info Meaningful Use Diagnoses (Choose all that apply): None applicable Discharge Plan Admission Admit Date/Time: 03/14/22 07:00 Attending Provider: Shirley Willis Primary Care Provider: Care PhysicianViola Primary Discharge Orders/Prescriptions Prescriptions: No Action Prenatabs FA 1 TABLET tablet 1 tab PO DAILY acetaminophen 500 MG tablet 1,000 mg PO Q8H PRN PRN (Reason: MILD PAIN (1-3/10)/Temp>99.6F) 0RF cholecalciferol (vitamin D3) [Vitamin D3] 1,000 UNIT tablet 1,000 unit PO DAILY Lactobac acidoph-fructooligos 1 EACH tablet 1 ea PO DAILY Aspir-81 81 mg PO.IVFORM DAILY Referrals / Follow Up: Care Physician,Viola Primary [Primary Care Provider] -
--- NOTE | 2022-03-16 08:28 | DCINST_ITS ---
Discharge Instructions Procedure Diet Discharge Diet: No restrictions Activity May resume sexual activity in: 6-8 weeks Lifting Restrictions: 25 Dressing / Incision Call your doctor if your incision/area has: Continuous Slow Oozing, Sudden Increased Bleeding, Increased Pain/ Swelling, Increased Redness, Foul Smelling Discharge and Swelling at the incision site Call your doctor if you observe: Fever of 101 or Higher, Inability to urinate, Using more than 1 pad per hour and Uncontrolled pain Additional Dressing/Incision Instructions:: remove dressing at 7 days post op- if it becomes saturated prior to that time you may remove it. Let soap and water run over incision sites and dab dry. keep incision clean and dry. Follow Up Care Please Follow Up With: Niki Saunders MD When: 1-2 weeks post of incision check and again at 6 weeks post . [phone] Test Results: Test results from this visit will be discussed in further detail at your follow- up appointment, if applicable. Discharge Plan Admission Admit Date/Time: 03/14/22 07:00 Attending Provider: Shirley iWllis Primary Care Provider: Care PhysicianViola Primary Discharge Orders/Prescriptions Prescriptions: New acetaminophen 500 mg Tablet 1,000 mg PO Q6 Qty: 0 0RF ibuprofen 600 mg Tablet 600 mg PO Q6H Qty: 0 0RF Continued Prenatabs FA 1 TABLET tablet 1 tab PO DAILY acetaminophen 500 MG tablet 1,000 mg PO Q8H PRN PRN (Reason: MILD PAIN (1-3/10)/Temp>99.6F) 0RF cholecalciferol (vitamin D3) [Vitamin D3] 1,000 UNIT tablet 1,000 unit PO DAILY Lactobac acidoph-fructooligos 1 EACH tablet 1 ea PO DAILY Discontinued Aspir-81 81 mg PO.IVFORM DAILY Referrals / Follow Up: Care Physician,No Primary [Primary Care Provider] - Disposition Disposition (needs filled in before D/C Order can be placed): Home, Self Care
[2022-03-16 09:00] VITALS: BP 115/52; PULSE 79; RESP 18; TEMP 36.7
[2022-03-16] MEDS: Senna/Docusate Sodium 1 Tablet PO (11:15)
--- NOTE | 2022-03-16 16:14 | CASEMGMT ---
Social Work Brief Assessment Labor and Delivery Unit Patient Address: [address], [place] [address] Phone number: [phone] Date of Referral/Notification: 03/15/2022 Time of Referral: 416 Referred By: Codi Monterroso CNM Date of Intervention: 03/16/2022 Time of Intervention: 1050 Reason for Referral: History of depression Informant: Medical record and mother of baby (MOB) Ariana Ponce; father of baby (FOB) Beni Kris present for part of conversation History: NELSON is a 37-year-old female, to the FOB who is 36 years old. for 13 years. NELSON is 7, para 5 now 6 after delivering baby girl Frederic on 03/14/2022. Frederic delivered via primary , which was unexpected per the MOB's report. care started at 14 weeks and regular thereafter. Frederic weighed 8 pounds at . Apgars 9 and 9. Other children in the home include Priscilla (09/19/2009), Felix (04/03/2014), Beni (11/08/2015), Tor (04/10/2017), Varghese (06/09/2020), and Frederic (03/14/2022). NELSON has a high school education, no issues with reading, writing or learning. FOB has a masters degree in clinical counseling. 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 NELSON reports some depression after her first child was born but denies any other mood or anxiety complications with subsequent children. Denies any history of suicidal ideation. During private conversation with the MOB, MOB denied any type of domestic violence or intimate partner violence with the FOB. Family denies any type of substance use issues. Assessment: Met with MOB in room, introducing to self and social work role. MOB and FOB receptive and willing to speak with this song writer. FOB shared with this song writer that he is a mental health counselor and hoped that this information would not intimidate this song writer. MOB and FOB reported to have necessary supplies to care for the infant at home, and a good support system from family. Family does not use control, and MOB indicates we will see what happens in the future. MOB denies depression but admits has been having some worry about things getting done at home, and transitioning the home and for baby. 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 MOB acknowledges that sometimes it is hard to accept help but realizes she cannot do everything herself. FOB expressed support to MOB for accepting help from others. 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 MOB shared that her mother comes over once a week to help with laundry and to have somebody else, just help with general things every other week. During private conversation with the MOB, MOB denied any type of safety concerns at home, and shared that her main coping skill is talking to the FOB. Reports FOB is primary emotional support. MOB tearful intermittently throughout social work visit. Good eye contact and smiled at appropriate times. Much emotional support and supportive encouragement provided to MOB this date. Encouraged coping and self-care, and that it is okay to ask for help. MOB reports she has been trying to do better about accepting help and support. Normalized thoughts and feelings. MOB attended to the baby during social work visit, was appropriate and gentle. Provided information on mood and anxiety disorders, as well as additional resources for support after home-going in relation to this topic. MOB expressed appreciation for information and for time talking with MOB this date. Plan: MOB and will discharge home when medically ready. Resources provided for home-going related to mood and anxiety disorders. No further needs requested or indicated. -LUCA Lanier, MAGNUS *This note was generated with [employer] software. It may contain incorrect words, spelling, and punctuation that were not noted in review of the chart prior to signing*
== END 2022-03-16 11:55 | disposition home or self-care (01) | DRG 787 ==
PROVIDERS: Advanced Practice Midwife; Admitting Provider Obstetrics & Gynecology; Visit Provider Obstetrics & Gynecology
DX: O32.2XX0 Maternal care for transverse and oblique lie, not applicable or unspecified (principal); O72.1 Other immediate postpartum hemorrhage; D62 Acute posthemorrhagic anemia; E66.01 Morbid (severe) obesity due to excess calories; O32.1XX0 Maternal care for breech presentation, not applicable or unspecified; Z3A.39 39 weeks gestation of pregnancy; Z37.0 Single live birth; O90.81 Anemia of the puerperium; O99.214 Obesity complicating childbirth; O26.23 Pregnancy care for patient with recurrent pregnancy loss, third trimester; Z90.49 Acquired absence of other specified parts of digestive tract; Z87.59 Personal history of other complications of pregnancy, childbirth and the puerperium
CPT/HCPCS: 59025; 59050; 85025; 85027; 86850; 86900; 86901; 99218; 99251; J7120; A4216; G0378; G0463